=== PATIENT | female | born 1980 | race Caucasian/White ===

== ENCOUNTER → 2017-02-20 12:03 | Outpatient (CLI) | payer MEDICAID | END | disposition home or self-care (01) | LOC: D.NM 12:03 | DX: R10.11 Right upper quadrant pain (principal) ==

== ENCOUNTER 2017-03-25 06:00 | Day surgery (SDC) | payer MEDICAID ==
[2017-03-24 14:40] LABS: HEMATOCRIT 39.5 % (36.0-48.0); HEMOGLOBIN 13.2 g/dL (12-16); MCH 27.6 pg (26.0-34.0); MCHC 33.4 g/dL (31.0-37.0); MCV 82.6 fL (80.0-100.0); MEAN PLATELET VOLUME 8.8 fL (7.4-10.4); RBC 4.78 10x6/uL (4.00-5.40); WBC 8.6 10x3/uL (4.8-10.8)
[~2017-03-25] VITALS: Ht 152.4 cm; Wt 79.4 kg
[~2017-03-25 06:00] MED LIST: KLONOPIN0.5 MG PO; TENORMIN50 MG PO; WELLBUTRIN SR150 MG PO
[2017-03-25 08:48] VITALS: BP 136/82; Ht 152.4 cm; Wt 79.4 kg
[2017-03-25 09:04] LABS: HCG URINE NEGATIVE (NEGATIVE)
[2017-03-25] MEDS ORDERED: HYDROCODON-ACE1 EAC7 PO (12:42)
--- NOTE | 2017-03-25 15:44 | NUR ---
REQUEST PRESCRIPTION FOR ZOFRAN, SPOKE WITH DR QUINTANA. ZOFRAN ODT 4MG Q4H PRN N/V #20 [id number] CALLED TO [facility] PER PT REQUEST. IV TO LEFT HAND DC'D WITH TIP INTACT, NO REDNESS OR SWELLING NOTED TO SITE. DISCHARGE INSTRUCTIONS REVIEWED, VERBALIZED UNDERSTANDING. SCRIPT TO PT. DC'D VIA WC WITH SISTER AND STAFF
--- NOTE | 2017-03-26 08:16 | OP ---
PATIENT NAME: CASI JOSUE MEDICAL RECORD: [id number] :84 LOCATION:[facility] ADMISSION DATE: SURGEON: MICHAEL QUINTANA MD DATE OF OPERATION: 03/25/2017 SURGEON: Michael Quintana MD. PREOPERATIVE DIAGNOSES: 1. Biliary dyskinesia. 2. Right upper quadrant pain. POSTOPERATIVE DIAGNOSES: 1. Biliary dyskinesia. 2. Right upper quadrant pain. PROCEDURE PERFORMED: Laparoscopic cholecystectomy. ANESTHESIA: General. COMPLICATIONS: None. SPECIMENS: Gallbladder. Case was clean contaminated. ESTIMATED BLOOD LOSS: 30 cc. OPERATIVE COURSE: After consent was obtained, the patient was taken to the operating room and placed in the supine position on the operating table. Next, general anesthesia was given via endotracheal intubation after a timeout was taken to confirm the correct patient and procedure. The abdomen was then prepped and draped in typical sterile fashion. Local anesthetic was injected just above the umbilicus. A stab incision was made with an 11-blade scalpel. Using a 5-mm bladeless optical trocar, the abdomen was entered under direct laparoscopic vision. Adequate pneumoperitoneum was achieved. The abdominal cavity was inspected. No evidence of bowel injury. No evidence of bleeding. Once the abdominal cavity was entered, there is no evidence of bowel injury. No evidence of bleeding. The patient was then placed in the steep reverse Trendelenburg position. All remaining trocars were placed after the administration of local anesthetic under direct laparoscopic vision, two 5-mm trocars in the right upper quadrant and 11-mm trocar in the subxiphoid position. The fundus of the gallbladder was grasped and retracted cephalad. The infundibulum was grasped and retracted laterally. The peritoneum was incised using electrocautery. Blunt dissection was then performed until the critical view was obtained. The cystic duct lateral, cystic artery medial, liver in the posterior window. Intraoperative pictures were obtained, 2 clips were placed in the proximal cystic artery, 3 clips were placed in the proximal cystic duct, 1 clip distal. The duct and artery were then transected with laparoscopic Metzenbaum scissors. The remaining portion of the gallbladder was dissected off the liver bed using electrocautery. Once complete, it was grasped with the tenaculum and removed through the 11-mm trocar and sent for permanent pathology. The operative field was copiously irrigated and suctioned. Careful attention was paid to hemostasis, which was obtained in the liver bed using electrocautery. Again, the abdominal cavity was inspected. There was no evidence of bowel injury. No evidence of bleeding. Again, the operative site OPERATIVE REPORT [id number] CASI JOSUE was copiously irrigated and suctioned. The clips were examined, there were [address] in the cystic duct, [address] in the cystic artery. At this time, all remaining instruments were removed. The abdomen was desufflated. Trocars removed. Skin was closed with 4-0 Monocryl, Mastisol and Steri-Strips. At the end of the case, all needle and instrument counts were correct. No complications occurred. The patient was extubated and transferred to the PACU in stable condition. TRANSINT:[id number] Voice Confirmation ID: [id number] DOCUMENT ID: [id number] MICHAEL QUINTANA MD at 0816 CC: [id number] DICTATION DATE: 03/25/17 1241 SCREW SUPERVISOR: 03/25/17 1935 [facility] 03/25/17 [facility] [address] [place] [address]
== END 2017-03-25 15:46 | disposition home or self-care (01) ==
LOC: D.OPS 06:00 → D.PAN 10:30 → D.OPS 11:50 → D.PAN 11:50 → D.OPS 15:46 → D.PAN 04-06 07:30
PROVIDERS: Anesthesiology; Surgery
DX: K82.8 Other specified diseases of gallbladder (principal); I10 Essential (primary) hypertension; E03.9 Hypothyroidism, unspecified; G47.30 Sleep apnea, unspecified; R10.11 Right upper quadrant pain; E06.3 Autoimmune thyroiditis; Z01.812 Encounter for preprocedural laboratory examination